=== PATIENT | female | born 1950 | race Caucasian/White ===

== ENCOUNTER → 2017-09-28 | Outpatient (CLI) | payer MEDICARE, OTHER ==
[~2017-09-28] MED LIST: ACTOS30 MG PO; AMARYL 2MG T2 MG/TAB PO; COZAAR100 MG PO; GLUCOPHAGE500 MG/TAB PO; LANTUS100 U/ML SC; NORCO 325 MG-51 TAB PO; OCUVITE1 TA1 PO; PROTONIX 40MG T40 MG PO; SYNTHROID0.075 MG/T PO; VITAMIN D31000 I1 PO; VITAMINC1000TA PO; ZANTAC 150MG T150 MG PO; ZANTAC 7575 MG PO; ZINC50 M1 PO
== END ==
LOC: MC.RAD 10:51
DX: Z12.31 Encounter for screening mammogram for malignant neoplasm of breast (principal)

== ENCOUNTER → 2018-01-12 | Outpatient (CLI) | payer MEDICARE, OTHER | LOC: COL.RAD 07:40 | DX: E11.9 Type 2 diabetes mellitus without complications (principal); R11.2 Nausea with vomiting, unspecified | CPT/HCPCS: A9541 ==

== ENCOUNTER 2018-04-24 10:49 | Inpatient (IN) | payer MEDICARE, OTHER ==
[2018-04-24] VITALS (92 sets, daily range): BP systolic 110–143; BP diastolic 28–87; PULSE 52–91; TEMP 99.4–101.9; O2SAT 86–98
[~2018-04-24] VITALS: Ht 154.9 cm; Wt 111.2 kg
[~2018-04-24 10:49] MED LIST changes: -LANTUS100 U/ML SC; +LANTUS100 U/ML SQ
[2018-04-24 20:32] LABS: BASO % 0.2 % (0.0-2.0); GRAN # 17.2 (1.4-6.5); GRAN % 87.9 % (42.2-75.2); LYMPH % 5.2 % (20.0-51.0); MEAN CELL VOLUME 88 fl (80.0-100.0); MEAN CORPUSCULAR HGB CONC 32 g/dl (33.0-37.0); MEAN PLATELET VOLUME 9.4 fl (7.4-10.4); MONO # 1.2 (0.1-0.6); MONO % 5.9 % (1.7-9.3); PLATELET COUNT 270 K/mm3 (130-400); RED BLOOD COUNT 3.48 M/mm3 (4.10-5.30); REDCELL DISTRIBUTION WIDTH-CV 14.6 % (11.5-14.5)
[2018-04-24 20:39] LABS: INR 1.4 (0.8-3.0); PROTHROMBIN TIME 15.7 SECONDS (9.7-12.8)
[2018-04-24 20:41] LABS: HEMATOCRIT 30.5 % (37.0-47.0); HEMOGLOBIN 9.7 g/dl (12.5-16.0); MEAN CORPUSCULAR HEMOGLOBIN 28 pg (27.0-31.0)
[2018-04-24 20:42] LABS: PARTIAL THROMBOPLASTIN TIME 39.2 SECONDS (26.0-37.0)
[2018-04-24 20:43] LABS: ALANINE AMINOTRANSFERASE 24 U/L (9-52); ALBUMIN 2.6 gm/dL (3.5-5.0); ALKALINE PHOSPHATASE 51 U/L (50-136); ANION GAP 10 mmol/L (7-16); AST,SGOT 16 U/L (15-37); BILIRUBIN,TOTAL 0.4 mg/dL (0.0-1.0); BLOOD UREA NITROGEN 22 mg/dL (7-17); CALCIUM 6.5 mg/dL (8.4-10.2); CARBON DIOXIDE 22 mmol/L (22-30); CHLORIDE 106 mmol/L (98-107); CREATININE, serum 1.97 mg/dL (0.52-1.25); GLUCOSE 234 mg/dL (74-106); POTASSIUM 3.3 mmol/L (3.4-5.0); SODIUM 137 mmol/L (137-145); TOTAL PROTEIN 5.5 gm/dL (6.4-8.2)
[2018-04-24 20:45] LABS: SALICYLATE < 1.0 mg/dL
[2018-04-24 20:58] LABS: TROPONIN-I < 0.012 ng/mL (0.000-0.034)
[2018-04-24 23:32] LABS: ARTERIAL BLD GAS O2 SATURATION 96.2 % (92-100); ARTERIAL BLD GAS TCO2 CT 21.1; ARTERIAL BLOOD GAS BASE EXCESS -2.8 (-2-2); ARTERIAL BLOOD GAS HCO3 20.2 meq/L (22-26); ARTERIAL BLOOD GAS PO2 84.1 mmHg (80-100); ARTERIAL BLOOD GAS pH 7.46 (7.35-7.45)
[2018-04-25] VITALS (388 sets, daily range): BP systolic 110–139; BP diastolic 45–78; PULSE 69–83; TEMP 98–99.9; O2SAT 86–100
[2018-04-25] MEDS ORDERED: VICTOZA SQ (05:57)
[2018-04-25 06:31] LABS: BASO % 0.2 % (0.0-2.0); GRAN # 15.5 (1.4-6.5); GRAN % 83.8 % (42.2-75.2); LYMPH # 1.4 (1.2-3.4); LYMPH % 7.3 % (20.0-51.0); MEAN CELL VOLUME 85 fl (80.0-100.0); MEAN CORPUSCULAR HGB CONC 32 g/dl (33.0-37.0); MEAN PLATELET VOLUME 9.8 fl (7.4-10.4); MONO # 1.4 (0.1-0.6); MONO % 7.7 % (1.7-9.3); PLATELET COUNT 231 K/mm3 (130-400); RED BLOOD COUNT 3.55 M/mm3 (4.10-5.30); REDCELL DISTRIBUTION WIDTH-CV 14.6 % (11.5-14.5)
[2018-04-25 06:42] LABS: ALBUMIN 2.6 gm/dL (3.5-5.0); BILIRUBIN,TOTAL 0.5 mg/dL (0.0-1.0); CALCIUM 6.9 mg/dL (8.4-10.2); CREATININE, serum 1.95 mg/dL (0.52-1.25); HEMATOCRIT 30.2 % (37.0-47.0); HEMOGLOBIN 9.6 g/dl (12.5-16.0); MAGNESIUM 2.1 mg/dL (1.6-2.3); MEAN CORPUSCULAR HEMOGLOBIN 27 pg (27.0-31.0); POTASSIUM 3.8 mmol/L (3.4-5.0); TOTAL PROTEIN 5.6 gm/dL (6.4-8.2)
[2018-04-25 06:54] LABS: INR 1.3 (0.8-3.0); PROTHROMBIN TIME 14.5 SECONDS (9.7-12.8)
[2018-04-26 00:54] VITALS: BP 143/57; PULSE 78; TEMP 98.6
[2018-04-26 04:12] VITALS: BP 137/60; PULSE 74; TEMP 98.7
[2018-04-26 07:24] LABS: BASO % 0.3 % (0.0-2.0); EOS # 0.1 (0.0-0.7); EOS % 0.6 % (0-4.0); GRAN % 83.2 % (42.2-75.2); LYMPH # 1.2 (1.2-3.4); LYMPH % 10.8 % (20.0-51.0); MEAN CELL VOLUME 85 fl (80.0-100.0); MEAN CORPUSCULAR HGB CONC 32 g/dl (33.0-37.0); MEAN PLATELET VOLUME 10.3 fl (7.4-10.4); MONO # 0.5 (0.1-0.6); MONO % 4.4 % (1.7-9.3); PLATELET COUNT 233 K/mm3 (130-400); RED BLOOD COUNT 3.41 M/mm3 (4.10-5.30); REDCELL DISTRIBUTION WIDTH-CV 14.6 % (11.5-14.5)
[2018-04-26 07:25] LABS: HEMOGLOBIN 9.4 g/dl (12.5-16.0); MEAN CORPUSCULAR HEMOGLOBIN 28 pg (27.0-31.0)
[2018-04-26 07:32] LABS: INR 1.2 (0.8-3.0); PROTHROMBIN TIME 13.1 SECONDS (9.7-12.8)
[2018-04-26 07:34] LABS: ALBUMIN 2.5 gm/dL (3.5-5.0); BILIRUBIN,TOTAL 0.7 mg/dL (0.0-1.0); CALCIUM 7.2 mg/dL (8.4-10.2); CREATININE, serum 1.64 mg/dL (0.52-1.25); POTASSIUM 3.8 mmol/L (3.4-5.0); TOTAL PROTEIN 5.5 gm/dL (6.4-8.2)
[2018-04-26 08:35] VITALS: BP 132/59; PULSE 65; TEMP 98.8
[2018-04-26 12:35] VITALS: BP 134/66; PULSE 80; TEMP 97.8
[2018-04-26 16:52] VITALS: BP 150/61; PULSE 75; TEMP 98.2
[2018-04-26 19:24] VITALS: BP 146/52; PULSE 77; TEMP 98.4
[2018-04-27 00:16] VITALS: BP 141/54; PULSE 75; TEMP 98.5
[2018-04-27 04:42] VITALS: BP 146/54; PULSE 67; TEMP 98
[2018-04-27 07:29] LABS: BASO % 0.4 % (0.0-2.0); EOS # 0.2 (0.0-0.7); EOS % 1.9 % (0-4.0); GRAN % 72.8 % (42.2-75.2); LYMPH # 1.5 (1.2-3.4); LYMPH % 18.3 % (20.0-51.0); MEAN CELL VOLUME 83 fl (80.0-100.0); MEAN CORPUSCULAR HGB CONC 33 g/dl (33.0-37.0); MEAN PLATELET VOLUME 10.2 fl (7.4-10.4); MONO # 0.5 (0.1-0.6); MONO % 6.1 % (1.7-9.3); PLATELET COUNT 243 K/mm3 (130-400); RED BLOOD COUNT 3.41 M/mm3 (4.10-5.30); REDCELL DISTRIBUTION WIDTH-CV 14.6 % (11.5-14.5)
[2018-04-27 07:30] LABS: HEMATOCRIT 28.3 % (37.0-47.0); HEMOGLOBIN 9.2 g/dl (12.5-16.0); MEAN CORPUSCULAR HEMOGLOBIN 27 pg (27.0-31.0)
[2018-04-27 07:35] LABS: INR 1.1 (0.8-3.0)
[2018-04-27 07:39] LABS: ALBUMIN 2.5 gm/dL (3.5-5.0); BILIRUBIN,TOTAL 0.5 mg/dL (0.0-1.0); CALCIUM 7.5 mg/dL (8.4-10.2); CREATININE, serum 1.32 mg/dL (0.52-1.25); POTASSIUM 3.9 mmol/L (3.4-5.0); TOTAL PROTEIN 5.4 gm/dL (6.4-8.2)
[2018-04-27 08:55] VITALS: BP 139/84; PULSE 60; TEMP 97.9
[2018-04-27] MEDS ORDERED: CIPRO 500MG TA500 MG PO (11:28)
[2018-04-27 12:36] VITALS: BP 139/84; PULSE 60; TEMP 97.9
[2018-04-27 12:44] VITALS: BP 122/76; PULSE 74; TEMP 98.1
== END 2018-04-27 13:10 | disposition swing bed (61) | DRG 872 ==
LOC: SURG 10:49 → ICU 12:20 → SURG 12:20 → ICU 21:15 → SURG 04-25 13:20
PROVIDERS: Nurse Practitioner Family; Urology
PROC: 0T768DZ Dilation of Right Ureter with Intraluminal Device, Via Natural or Artificial Opening Endoscopic (ICD-10-PCS; principal; 2018-04-24 16:00)
PROC: BT1DZZZ Fluoroscopy of Right Kidney, Ureter and Bladder (ICD-10-PCS; 2018-04-24 16:00)
DX: A41.9 Sepsis, unspecified organism (principal); N17.9 Acute kidney failure, unspecified; N13.6 Pyonephrosis; R65.20 Severe sepsis without septic shock; I10 Essential (primary) hypertension; E11.42 Type 2 diabetes mellitus with diabetic polyneuropathy; E87.6 Hypokalemia; E83.42 Hypomagnesemia; E11.65 Type 2 diabetes mellitus with hyperglycemia; E11.43 Type 2 diabetes mellitus with diabetic autonomic (poly)neuropathy; K31.84 Gastroparesis
CPT/HCPCS: 99222; 99232-AI; C1769; C2617; J0330; J0696; J1815; J2405; J2543; J2550; J2704; J3010; J3475; J3480; J7030; Q9967

== ENCOUNTER 2018-05-09 12:25 | Day surgery (SDC) | payer MEDICARE, OTHER ==
[~2018-05-09] VITALS: Ht 154.9 cm; Wt 103.1 kg
[~2018-05-09 12:25] MED LIST changes: +CIPRO 500MG TA500 MG PO; +VICTOZA SQ
[2018-05-09 15:00] VITALS: BP 145/62; PULSE 89; TEMP 97.7
[2018-05-09] MEDS ORDERED: VITAMIN C500 MG PO (15:20)
[2018-05-09] MEDS ORDERED: AMARYL4 MG PO (15:21)
[2018-05-09] MEDS ORDERED: LANTUS100 U/ML SQ (15:23)
[2018-05-09] MEDS ORDERED: COZAAR 50MG50 MG/TAB PO (15:24)
[2018-05-09] MEDS ORDERED: MYRBETR50MG PO (15:28)
[2018-05-09] MEDS ORDERED: ZOCOR 20MG20 MG PO (15:28)
[2018-05-09] MEDS ORDERED: REGLAN 5MG T5 MG/TAB PO (15:29)
[2018-05-09] MEDS ORDERED: TESSALON P100 MG/CAP PO (15:31)
[2018-05-09 16:45] VITALS: BP 157/77; PULSE 83; TEMP 98.1
[2018-05-09 17:00] VITALS: BP 169/68; PULSE 69
[2018-05-09 17:15] VITALS: BP 173/65; PULSE 69
[2018-05-09 17:30] VITALS: BP 165/59; PULSE 74
== END 2018-05-09 17:45 | disposition home or self-care (01) ==
LOC: SDCO 12:25
DX: N20.1 Calculus of ureter (principal); E11.9 Type 2 diabetes mellitus without complications; I10 Essential (primary) hypertension; Z79.4 Long term (current) use of insulin; Z79.899 Other long term (current) drug therapy
CPT/HCPCS: C1769; J0690; J2405; J2704; J3010; J7030

== ENCOUNTER 2018-06-02 09:11 | Day surgery (SDC) | payer MEDICARE, OTHER ==
[~2018-06-02] VITALS: Ht 154.9 cm; Wt 103.9 kg
[~2018-06-02 09:11] MED LIST changes: +AMARYL4 MG PO; +COZAAR 50MG50 MG/TAB PO; +MYRBETR50MG PO; +REGLAN 5MG T5 MG/TAB PO; +TESSALON P100 MG/CAP PO; +VITAMIN C500 MG PO; +ZOCOR 20MG20 MG PO
[2018-06-02 10:23] VITALS: BP 130/71; PULSE 81; TEMP 97.5
[2018-06-02] MEDS ORDERED: ZOCOR 20MG20 MG PO (10:33)
[2018-06-02] MEDS ORDERED: PROTONIX 40MG T40 MG PO (10:33)
[2018-06-02] MEDS ORDERED: COZAAR 50MG50 MG/TAB PO (10:33)
[2018-06-02] MEDS ORDERED: REGLAN 5MG T5 MG/TAB PO (10:35)
[2018-06-02] MEDS ORDERED: LANTUS100 U/ML SQ (10:35)
[2018-06-02] MEDS ORDERED: VICTOZA6 MG/ML SQ (10:35)
[2018-06-02] MEDS ORDERED: MYRBETR50MG PO (10:36)
[2018-06-02] MEDS ORDERED: ZANTAC 7575 MG PO (10:36)
[2018-06-02] MEDS ORDERED: PROBIOTIC FORMU1 CAP PO (10:37)
[2018-06-02 10:50] VITALS: BP 150/65; PULSE 86; TEMP 97.5
[2018-06-02 11:05] VITALS: BP 137/55; PULSE 85
[2018-06-02 11:20] VITALS: BP 140/59; PULSE 76
== END 2018-06-02 11:30 | disposition home or self-care (01) ==
LOC: SDCO 09:11
DX: K22.70 Barrett's esophagus without dysplasia (principal); K21.9 Gastro-esophageal reflux disease without esophagitis; E11.43 Type 2 diabetes mellitus with diabetic autonomic (poly)neuropathy; K31.84 Gastroparesis; Z79.4 Long term (current) use of insulin; I10 Essential (primary) hypertension; E07.9 Disorder of thyroid, unspecified; Z85.42 Personal history of malignant neoplasm of other parts of uterus; Z79.899 Other long term (current) drug therapy
CPT/HCPCS: J2250; J3010; J7030

== ENCOUNTER → 2018-11-29 | Outpatient (CLI) | payer MEDICARE, OTHER ==
[~2018-11-29] MED LIST changes: +PROBIOTIC FORMU1 CAP PO; +VICTOZA6 MG/ML SQ
== END ==
LOC: MC.RAD 11:06
DX: Z12.31 Encounter for screening mammogram for malignant neoplasm of breast (principal)